=== PATIENT | male | born 1985 | race Caucasian/White ===

== ENCOUNTER → 2018-04-15 | Outpatient (CLI) | payer BC ==
[~2018-04-15] MED LIST: OMEP-218 PO; TOBR5DRO43 OP
--- NOTE | 2018-04-15 14:26 | RADIOLOGY IMAGING REPORT ---
FACILITY: [facility] PATIENT NAME: Matthew Pressley : 1985 MR: [id number] V: [id number] EXAM DATE: ORDERING PHYSICIAN: DILLON MALDONADO TECHNOLOGIST: Location: [facility] - [place], [place] Patient: Matthew Pressley : 1985 Visit/Account:[id number] Date of Sevice: 04/15/2018 Exam type: SOFT TISSUE NON-SPECIFIC History: Lump in mid sternum Comparison: None. Findings: Just beneath the skin in the subcutaneous soft tissues anterior to the sternum in the midline is a 1. 5 x 0.7 x 2.1 cm ovoid well-circumscribed mass of mixed echogenicity with both hyper and hypoechoic c omponents. The appearance is nonspecific. No significant internal blood flow was demonstrated The anterior border the nodule is 1.6 mm deep to the skin. IMPRESSION: 1. In the location of patient's palpable abnormality there is a 1.5 x 0.7 x 2.1 cm ovoid well-circums cribed mass of mixed echogenicity just anterior to the sternum in the midline approximately 1.6 mm de ep to the skin. The appearance is nonspecific. No significant internal blood flow was demonstrated Report Dictated By: Angela Glaser MD at 04/15/2018 2:19 PM Report E-Signed By: Angela Glaser MD at 04/15/2018 2:22 PM WSN:[email or web address]
== END ==
LOC: US 03:05
PROVIDERS: ATTEND Nurse Practitioner Family
DX: S20.219A Contusion of unspecified front wall of thorax, initial encounter (principal); R07.89 Other chest pain
CPT/HCPCS: 76999